=== PATIENT | female | born 1975 | race Caucasian/White ===

== ENCOUNTER 2020-09-08 17:30 | Emergency (ER) | payer OTHER ==
[~2020-09-08 17:30] MED LIST: ALDACTONE100 MG PO; AZITHROMYCIN500 MG PO; OMNICEF 300 MG300 MG PO; POTASSIUM CHLO20 ME2 PO
[2020-09-08] MEDS ORDERED: LODINE CAP 300300 MG PO (19:04)
[2020-09-08] MEDS ORDERED: ZOFRAN ODT 4 MG4 MG PO (19:04)
[2020-09-08] MEDS ORDERED: CEPHALEXIN500 MG PO (19:04)
[2020-09-08] MEDS ORDERED: BACTRIM DS TAB1 EACH PO (19:04)
== END 2020-09-08 19:30 | disposition home or self-care (01) ==
LOC: ER1 17:30
DX: L02.412 Cutaneous abscess of left axilla (principal); L03.112 Cellulitis of left axilla; I10 Essential (primary) hypertension; F17.210 Nicotine dependence, cigarettes, uncomplicated
CPT/HCPCS: 10060; 87070; 87077; 87186; 87205; 99283

== ENCOUNTER → 2020-11-19 | Outpatient (CLI) | payer OTHER ==
[~2020-11-19] MED LIST changes: +BACTRIM DS TAB1 EACH PO; +CEPHALEXIN500 MG PO; +LODINE CAP 300300 MG PO; +ZOFRAN ODT 4 MG4 MG PO
== END ==
LOC: US 13:30
DX: N63.20 Unspecified lump in the left breast, unspecified quadrant (principal)
CPT/HCPCS: 76641-LT

== ENCOUNTER 2021-01-10 17:46 | Emergency (ER) | payer OTHER | END 2021-01-10 17:59 | disposition left against medical advice (07) | LOC: ER1 17:46 | DX: Z53.21 Procedure and treatment not carried out due to patient leaving prior to being seen by health care provider (principal) ==

== ENCOUNTER 2021-05-05 12:17 | Emergency (ER) | payer OTHER ==
[2021-05-05 14:20] LABS: HEMOGLOBIN 15.3 gm/dl (12.3-15.3); RED BLOOD COUNT 4.69 M/UL (4.00-5.10); WHITE BLOOD COUNT 18.7 K/UL (4.5-11.0)
[2021-05-05 14:43] LABS: BUN/CREATININE RATIO 16 (0-10)
== END 2021-05-05 17:30 | disposition left against medical advice (07) ==
LOC: ER1 12:17
PROVIDERS: Physician Assistant
DX: J34.0 Abscess, furuncle and carbuncle of nose (principal); F17.200 Nicotine dependence, unspecified, uncomplicated; I10 Essential (primary) hypertension
CPT/HCPCS: 80053; 83605; 85025; 85652; 86140; 87040; 99283

== ENCOUNTER 2022-01-16 14:39 | Emergency (ER) | payer OTHER ==
[2022-01-16 15:46] LABS: HEMOGLOBIN 13.9 gm/dl (12.3-15.3); RED BLOOD COUNT 4.32 M/UL (4.00-5.10)
[2022-01-16 16:23] LABS: BUN/CREATININE RATIO 15 (0-10)
== END 2022-01-16 19:40 | disposition home or self-care (01) ==
LOC: ER1 14:39
PROVIDERS: Physician Assistant
DX: U07.1 COVID-19 (principal); I10 Essential (primary) hypertension; G43.909 Migraine, unspecified, not intractable, without status migrainosus; F17.200 Nicotine dependence, unspecified, uncomplicated
CPT/HCPCS: 0240U; 80053; 81001; 85025; 96361; 96374; 96375; 99284; J1885; J2405